=== PATIENT | female | born 1945 | race Caucasian/White ===

== ENCOUNTER → 2017-06-11 | Outpatient (CLI) | payer OTHER ==
[~2017-06-11] VITALS: Ht 152.4 cm; Wt 59.5 kg
[~2017-06-11] MED LIST: ATORVASTATIN CA20 MG PO; LEVOXYL50 MCG PO; TOPAMAX50 MG PO; TREXIMET 85-1 TABLET PO; VIVELLE-DOT0.0375 MG TD
[2017-06-11 08:33] VITALS: BP 114/61
== END | disposition home or self-care (01) ==
LOC: IVINF 05-29 15:00
DX: M81.0 Age-related osteoporosis without current pathological fracture (principal); T50.995A Adverse effect of other drugs, medicaments and biological substances, initial encounter
CPT/HCPCS: 96365; J3489